=== PATIENT | female | born 1985 | race Caucasian/White ===

== ENCOUNTER 2018-09-24 14:12 | Emergency (ER) | payer OTHER ==
[2018-09-24 14:25] VITALS: BP 127/80
[2018-09-24] MEDS ORDERED: AMOXICILLIN/K CLAV 875/125MG TABLET. PO ONE (14:30)
[2018-09-24] MEDS ORDERED: AMOX1TAB61 PO (14:35)
--- NOTE | 2018-09-24 14:35 | PHYS DOC ---
Adult General Chief Complaint Chief Complaint: DENTAL PROBLEM HPI HPI 33-year-old female presents with left-sided facial swelling. The patient has known multiple dental caries believe she has an infected tooth. She noticed the swelling starting 2 days ago, but it is increased significantly today. She also started to notice drainage from the left upper quadrant or the swelling is located. It is a whitish yellow in color. She denies fever or chills at home. She has attempted to call a dentist but could not be seen today as it is a Thursday. She just recently got insurance. Review of Systems Review of Systems Constitutional: Denies fever or chills [] Eyes: Denies change in visual acuity, redness, or eye pain [] HENT: Denies nasal congestion or sore throat. Dental caries. Swollen left face[] Respiratory: Denies cough or shortness of breath [] Cardiovascular: No additional information not addressed in HPI [] GI: Denies abdominal pain, nausea, vomiting, bloody stools or diarrhea [] : Denies dysuria or hematuria [] Musculoskeletal: Denies back pain or joint pain [] Integument: Denies rash or skin lesions [] Neurologic: Denies headache, focal weakness or sensory changes [] Endocrine: Denies polyuria or polydipsia [] All other systems were reviewed and found to be within normal limits, except as documented in this note. Allergies Allergies Allergies Coded Allergies Type Severity Reaction Last Updated Verified No Known Drug Allergies 09/24/18 No Physical Exam Physical Exam Constitutional: Well developed, well nourished, no acute distress, non-toxic appearance. [] HENT: Normocephalic, atraumatic, bilateral external ears normal, nose normal. Multiple dental caries throughout the mouth. Left upper quadrant gums are erythematous. This extends into the cheek. There is no palpable pus pocket. There is evidence of purulent drainage.[] Eyes: PERRLA, EOMI, conjunctiva normal, no discharge. [] Neck: Normal range of motion, no tenderness, supple, no stridor. [] Cardiovascular:Heart rate regular rhythm, no murmur [] Lungs & Thorax: Bilateral breath sounds clear to auscultation [] Abdomen: Bowel sounds normal, soft, no tenderness, no masses, no pulsatile masses. [] Skin: Warm, dry, no erythema, no rash. [] Back: No tenderness, no CVA tenderness. [] Extremities: No tenderness, no cyanosis, no clubbing, ROM intact, no edema. [] Neurologic: Alert and oriented X 3, normal motor function, normal sensory function, no focal deficits noted. [] Psychologic: Affect normal, judgement normal, mood normal. [] EKG EKG [] Radiology/Procedures Radiology/Procedures [] Course & Med Decision Making Course & Med Decision Making Pertinent Labs and Imaging studies reviewed. (See chart for details) The patient does appear to have a dental infection. Seems to be spontaneously draining. I was unable to palpate a pus pocket to drain. I will treat the patient with Augmentin for 7 days. Will give the first dose in the ED. [] Dragon Disclaimer Dragon Disclaimer This electronic medical record was generated, in whole or in part, using a voice recognition dictation system. Departure Departure: Impression: Primary Impression: Infection of tooth socket Additional Impression: Dental caries Disposition: HOME, SELF-CARE Condition: STABLE Referrals: PCP,NO (PCP) Patient Instructions: Dental Abscess Scripts Amoxicillin/Potassium Clav (AUGMENTIN [id number] TABLET) 1 Each Tablet 1 TAB PO BID for infection, #14 TAB Prov: IVÁN SHAFFER DO 09/24/18 Problem Qualifiers IVÁN SHAFFER DO Sep 24, 2018 14:35
== END 2018-09-24 14:36 | disposition home or self-care (01) ==
LOC: ER 14:12
DX: M27.3 Alveolitis of jaws (principal); K02.9 Dental caries, unspecified
CPT/HCPCS: 99283